=== PATIENT | female | born 1955 | race African-American/Black ===

== ENCOUNTER → 2017-01-16 | Outpatient (CLI) | payer MEDICARE, OTHER ==
[~2017-01-16] MED LIST: AUVI-Q0.3 MG/0.3 INJ; HUMALOG MI100 UNIT/2; HYDROXYZINE HCL50 MG PO; IPRATROPIUM BROMIDE; STOOL SOFTENER100 M1 PO; VENTOLIN HFA
--- NOTE | ~2017-01-16 | NM8 ---
[facility] A Service of [facility] RADIOLOGY TEXT RESULTS PATIENT: KAYLIE ALEXANDRE LOCATION: [facility] : 55 UNIT #: [id number] AGE: [address]: Souleymane Claros MD SEX: F ORDER DR: [id number] [facility] [address] [place], [place] [address] [id number] O MR#: [id number] Acc #: [id number] NAME: KAYLIE ALEXANDRE : 1955 SEX: F STUDY DATE/TIME: 01/16/2017 11:12 UNIT: [facility] ROOM: STUDY DESCRIPTION: DE Bone or Joint Whole Body Attending Physician: Souleymane Claros M.D. Referring Physician: Souleymane Claros M.D. Ordering Physician: Souleymane Claros M.D. Primary Care Physician: Jose Alberto Cai Sr., M.D. MEDICAL IMAGING REPORT This report is preliminary unless electronic signature is present EXAM Whole body bone scan. HISTORY Osteoarthritis, left knee. Left lateral knee pain and swelling since 2009. COMPARISON MRI left knee 01/09/2017 and bilateral knee films 01/03/2017. FINDINGS 3-phase bone scan was performed, centered over the knees, following intravenous administration of 29.4 mCi technetium-99m MDP. Examination demonstrates increased flow to the left knee. Immediate blood-pool imaging also demonstrates increased uptake about the left knee, predominately localizing to the lateral tibial plateau. On delayed phase images, there is intense increased uptake in the lateral tibial plateau. This corresponds to a focus of marrow edema noted on the patient's recent MRI. The 3-phase positive activity would be compatible with an active process. This could indicate subchondral fracture, possibly representing insufficiency fracture. Photopenic area is noted in the right knee from the patient's right total knee arthroplasty. No abnormal uptake identified to suggest loosening. Whole-body scanning was also performed which demonstrates symmetric uptake of the pharmaceutical throughout remainder of the axial and appendicular skeleton, with the exception of mild increased activity at the L3 level of the lumbar spine compatible with mild degenerative changes as well as degenerative uptake within the hands and wrists. Bilateral renal activity and normal bladder activity noted. IMPRESSION Abnormal 3-phase bone scan demonstrating 3-phase positive uptake about the left knee localizing to the lateral tibial plateau and corresponds to an [facility] A Service of [facility] RADIOLOGY TEXT RESULTS PATIENT: KAYLIE ALEXANDRE LOCATION: [facility] : 55 UNIT #: [id number] AGE: [address]: Souleymane Claros MD SEX: F ORDER DR: area of marrow edema, as noted on the recent MRI. The 3-phase positive uptake does indicate an active process, and this could represent possible insufficiency fracture. This could also be seen with transient osteoporosis. Review of the patient's MRI demonstrates extensive marrow edema, but a discrete fracture line or subchondral fracture is not seen. Dictated by... Reddy Jules M.D. THIS IS AN ELECTRONICALLY VERIFIED REPORT Reddy Jules M.D. at 01/16/2017 4:56 PM Teodora TD: 01/16/2017 16:01 JOB #: [id number] MEDICAL IMAGING REPORT Page 1 of 1 COPY
== END | disposition home or self-care (01) ==
LOC: CNUC 09:23
DX: M17.12 Unilateral primary osteoarthritis, left knee (principal); R93.7 Abnormal findings on diagnostic imaging of other parts of musculoskeletal system
CPT/HCPCS: 78306; A9503